=== PATIENT | male | born 1960 | race Caucasian/White ===

== ENCOUNTER 2019-12-03 10:46 | Outpatient (CLI) | payer BC ==
--- NOTE | 2019-12-03 11:13 | RAD ---
EXAM: 2 views of the right hip HISTORY: Right hip pain for 3 months COMPARISON: None FINDINGS: 2 views of the right hip shows no evidence of acute fracture or dislocation. Moderate degen erative changes are seen. No soft tissue swelling is present. IMPRESSION: Moderate right hip osteoarthritis without evidence of acute osseous abnormality.
--- NOTE | 2019-12-03 11:14 | RAD ---
EXAM: 3 views of the left foot HISTORY: Foot pain for 2 months COMPARISON: None FINDINGS: 3 views of the left foot shows no evidence of acute fracture or dislocation. Mild dorsal so ft tissue swelling is seen. Mild degenerative changes are present in the great toe metatarsophalangeal joint and in the midfoot. IMPRESSION: No evidence of acute osseous abnormality.
== END 2019-12-03 10:47 | disposition home or self-care (01) ==
LOC: BICRAD 10:46
PROVIDERS: ATTEND Physician Assistant
DX: M79.672 Pain in left foot (principal); M25.551 Pain in right hip; M16.11 Unilateral primary osteoarthritis, right hip
CPT/HCPCS: 36415; 80053; 80061; 83036

== ENCOUNTER 2021-03-25 10:36 | Outpatient (CLI) | payer BC | END 2021-03-25 10:37 | disposition home or self-care (01) | LOC: BICRAD 10:36 | PROVIDERS: ATTEND Physician Assistant | DX: M25.552 Pain in left hip (principal); Z96.642 Presence of left artificial hip joint ==

== ENCOUNTER 2021-07-19 09:46 | Outpatient (CLI) | payer BC | END 2021-07-19 09:47 | disposition home or self-care (01) | LOC: BICRAD 09:46 | PROVIDERS: ATTEND Physician Assistant | DX: M25.551 Pain in right hip (principal) | CPT/HCPCS: 36415; 80053; 80061; 82043; 83036 ==

== ENCOUNTER 2023-04-24 08:55 | Outpatient (CLI) | payer BC | END 2023-04-24 08:56 | disposition home or self-care (01) | LOC: BICRAD 08:55 | PROVIDERS: ATTEND Physician Assistant | DX: M25.531 Pain in right wrist (principal); M19.031 Primary osteoarthritis, right wrist; M18.11 Unilateral primary osteoarthritis of first carpometacarpal joint, right hand ==

== ENCOUNTER 2024-02-13 07:47 | Outpatient (CLI) | payer BC ==
[2024-02-13 10:27] LABS: #Basophils 0.07 10x3/uL (0.0-0.2); %Basophils 0.9 % (0.0-1.0); %Eosinophils 2.4 % (0.0-10.0); %Lymphocytes 22.2 % (21.0-51.0); %Monocytes 6.9 % (0.0-10.0); %Neutrophils 67.1 % (42.0-75.0); Hematocrit 45.2 % (42.0-52.0); Hemoglobin 14.8 g/dL (14.0-18.0); Mean Corpuscular HGB CONC 32.7 g/dL (32.0-36.0); Mean Corpuscular Hemoglobin 27.3 pg (27.0-31.0); Mean Corpuscular Volume 83.4 fL (78.0-98.0); Mean Platelet Volume 9.7 fL (7.4-10.4); Platelet Count 238 10x3/uL (130-400); RBC Distribution Width 13.3 % (11.5-14.5); Red Blood Cell (RBC) Count 5.42 mill/uL (4.70-6.10)
[2024-02-13 10:39] LABS: Anion Gap 14 mmol/L (10-20); BUN (Urea Nitrogen) 35 mg/dL (8.4-25.7); Calc. Creatinine Clearance 0 mL/min (70-130); Calcium 9.2 mg/dL (7.8-10.44); Carbon Dioxide 20 mmol/L (23-31); Chloride 107 mmol/L (98-107); Estimated GFR 85; Glucose 122 mg/dL (80-115); Sodium 137 mmol/L (136-145)
== END 2024-02-13 07:48 | disposition home or self-care (01) ==
LOC: LABBT 07:47
PROVIDERS: ATTEND Orthopaedic Surgery
DX: Z01.818 Encounter for other preprocedural examination (principal); M16.11 Unilateral primary osteoarthritis, right hip
CPT/HCPCS: 80048; 85025; 85610; 87081; 93005; 93010

== ENCOUNTER 2024-02-20 05:35 | Observation (INO) | payer BC ==
[2024-02-13 08:32] VITALS: BMI 40.9
[2024-02-20] MEDS ORDERED: Sodium Chloride 0.9% 100 ML ONE ×2 (05:57→09:53)
[2024-02-20] MEDS ORDERED: Tranexamic Acid 1,000 MG/10 ML VIAL ONE (05:57)
[2024-02-20] MEDS ORDERED: Propofol 1,000 MG/100 ML VIAL IV ONE (06:14)
[2024-02-20] MEDS ORDERED: Etomidate 40 MG (20 mL) VIAL ONE (06:15)
[2024-02-20] MEDS ORDERED: Phenylephrine 40 MG/NS 250 ML 250 ML ONE (06:15)
[2024-02-20] MEDS ORDERED: Vancomycin (BATCH) 2 GM in Premix 1 BAG IVPB SCH (06:15)
[2024-02-20] MEDS ORDERED: Rocuronium Bromide 10 MG/ML (10ML VIAL) ONE ×2 (06:26→08:39)
[2024-02-20] MEDS ORDERED: fentaNYL PF 100 MCG/2 ML SYRINGE ONE ×2 (06:26→09:28)
[2024-02-20] MEDS ORDERED: PROPOFOL 20 ML ONE (06:26)
[2024-02-20] MEDS ORDERED: Ondansetron PF 4 MG/2 ML Vial ONE (06:26)
[2024-02-20] MEDS ORDERED: Lidocaine 2% PF 5 ML VIAL ONE (06:26)
[2024-02-20] MEDS ORDERED: Midazolam HCl 2 mg/2 ml Vial ONE (06:26)
[2024-02-20] MEDS ORDERED: Dexamethasone 4 mg/ml Vial ONE (06:26)
[2024-02-20] MEDS ORDERED: PROPOFOL 40 ML ONE (06:37)
[2024-02-20] MEDS ORDERED: Dexmedetomidine 200 MCG/2 ML VIAL ONE (06:46)
[2024-02-20] MEDS ORDERED: CEFAZOLIN 2 GM VIAL ONE (06:49)
[2024-02-20] MEDS ORDERED: Lidocaine 1.5% w/Epi 1:200K 30 ML VIAL (Epid Use) ONE (07:15)
[2024-02-20] MEDS ORDERED: Bupivacaine 0.25% HCL 30 ML VIAL ONE (07:20)
[2024-02-20] MEDS ORDERED: ePHEDrine Sulfate 50 MG/10 ML VIAL ONE (07:38)
[2024-02-20] MEDS ORDERED: Naloxone HCl 0.4 mg/ml Vial IV PRN (07:45)
[2024-02-20] MEDS ORDERED: HYDROcodone/Acetaminophen 5/325 mg Tablet PO PRN (07:45)
[2024-02-20] MEDS ORDERED: Promethazine HCl 25 MG/ML VIAL IM PRN ×2 (07:45→10:16)
[2024-02-20] MEDS ORDERED: Moisturizing Cream (Eucerin) 113 GM JAR TOP PRN (07:45)
[2024-02-20] MEDS ORDERED: diphenhydrAMINE 50 MG/ML VIAL IVP PRN (07:45)
[2024-02-20] MEDS ORDERED: traMADol HCl 50 MG TAB PO PRN ×2 (07:45)
[2024-02-20] MEDS ORDERED: Bupivacaine 0.25% 10 ML VIAL EPIDURAL PRN (07:45)
[2024-02-20] MEDS ORDERED: Promethazine HCl 25 MG SUPP PR PRN (07:45)
[2024-02-20] MEDS ORDERED: diphenhydrAMINE 25 MG CAP PO PRN ×2 (07:45→10:16)
[2024-02-20] MEDS ORDERED: Naloxone HCl 0.4 mg/ml Vial IVP PRN (07:45)
[2024-02-20] MEDS ORDERED: diphenhydrAMINE 50 MG/ML VIAL IM PRN (07:45)
[2024-02-20] MEDS ORDERED: SUGAMMADEX SODIUM 200 MG/2 ML VIAL ONE ×2 (08:43→08:50)
[2024-02-20] MEDS ORDERED: CEFAZOLIN 1 GM VIAL ONE (09:53)
[2024-02-20] MEDS ORDERED: Zolpidem Tartrate 5 MG TAB PO PRN (10:16)
[2024-02-20] MEDS ORDERED: Acetaminophen 325 MG TAB PO PRN (10:16)
[2024-02-20] MEDS ORDERED: Cyclobenzaprine 10 MG TAB PO PRN (10:16)
[2024-02-20] MEDS ORDERED: Ondansetron PF 4 MG/2 ML Vial IVP PRN (10:16)
[2024-02-20] MEDS ORDERED: Pregabalin 50 MG CAP PO PRN (10:43)
[2024-02-20] MEDS: Senokot S 8.6-50 MG TAB PO SCH ×2 (13:51→21:10)
[2024-02-20] MEDS: Multivitamin W/ Minerals 1 TAB PO SCH (13:51)
[2024-02-20] MEDS: Aspirin 81 mg Enteric Coated Tablet PO SCH ×2 (13:51→21:10)
[2024-02-20] MEDS: Ketorolac Tromethamine 30 MG (1 mL) VIAL IVP SCH (13:51)
[2024-02-20] MEDS: Ferrous Gluconate 324 MG TAB PO SCH ×2 (13:51→21:10)
[2024-02-20] MEDS: Sodium Chloride 0.9% 1,000 ML IV SCH (13:53)
[2024-02-20] MEDS: Icosapent Ethyl 1 GM CAPSULE PO SCH (14:21)
[2024-02-20] MEDS ORDERED: Dextrose 5% in Water 1,000 ML IV PRN (18:06)
[2024-02-20] MEDS ORDERED: Glucagon 1 MG/ML KIT IM PRN (18:06)
[2024-02-20] MEDS ORDERED: Dextrose 50% Abboject 50 ML SYRINGE SLOW IVP PRN (18:06)
[2024-02-20] MEDS ORDERED: Insulin Lispro 100 UNIT/ML 10 ML VIAL SC PRN (18:06)
[2024-02-20] MEDS: ADMIXTURE FEE IVPB SCH (19:29)
[2024-02-20] MEDS: CEFAZOLIN IVPB SCH (19:29)
[2024-02-20] MEDS: SODIUM CHLORIDE IVPB SCH (19:29)
[2024-02-20] MEDS: HUMULIN R U SC SCH (21:11)
[2024-02-20 21:13] VITALS: TEMP 97.7
[2024-02-20] MEDS: Ondansetron PF 4 MG/2 ML Vial IVP PRN (23:30)
[2024-02-21] MEDS: FENTANYL 500 MCG/10 ML VIAL 500 MCG, Bupivacaine 0.75% 10 ML in Sodium Chloride 0.9% 80 ML EPIDURAL SCH (02:20)
[2024-02-21] MEDS: Levothyroxine Sodium 112 MCG TAB PO SCH (06:33)
[2024-02-21] MEDS: Cholecalciferol 1,000 UNITS (25 MCG) TAB PO SCH (07:29)
[2024-02-21] MEDS: Empagliflozin 25 MG TAB PO SCH (07:29)
[2024-02-21] MEDS: Furosemide 20 MG TAB PO SCH (07:30)
[2024-02-21] MEDS: CO Q-10 CAPSULE 100 MG PO SCH (07:30)
[2024-02-21] MEDS: Multivitamin W/ Minerals 1 TAB PO SCH (07:30)
[2024-02-21] MEDS: Spironolactone 25 MG TAB PO SCH (07:30)
[2024-02-21] MEDS: Losartan 25 MG TAB PO SCH (07:30)
[2024-02-21 08:08] LABS: Hematocrit 37.7 % (42.0-52.0); Hemoglobin 12.2 g/dL (14.0-18.0); Mean Corpuscular HGB CONC 32.4 g/dL (32.0-36.0); Mean Corpuscular Hemoglobin 27.5 pg (27.0-31.0); Mean Corpuscular Volume 84.9 fL (78.0-98.0); Mean Platelet Volume 9.7 fL (7.4-10.4); Platelet Count 202 10x3/uL (130-400); RBC Distribution Width 13.5 % (11.5-14.5); Red Blood Cell (RBC) Count 4.44 mill/uL (4.70-6.10)
[2024-02-21] MEDS ORDERED: Insulin Lispro 100 UNIT/ML 10 ML VIAL SC PRN (08:34)
[2024-02-21 09:18] VITALS: BP 125/63
[2024-02-21] MEDS: HYDROcodone/Acetaminophen 5/325 mg Tablet PO PRN (11:40)
[2024-02-21] MEDS ORDERED: Rosuvastatin 20 MG TAB PO SCH (21:00)
== END 2024-02-21 15:26 | disposition home or self-care (01) ==
LOC: SDC 05:35 → SURG A 11:58
PROVIDERS: ADMIT Orthopaedic Surgery; ATTEND Orthopaedic Surgery
PROC: 0SR90JZ Replacement of Right Hip Joint with Synthetic Substitute, Open Approach (ICD-10-PCS; principal; 2024-02-20)
PROC: 3E0T3BZ Introduction of Anesthetic Agent into Peripheral Nerves and Plexi, Percutaneous Approach (ICD-10-PCS; 2024-02-20)
DX: M16.11 Unilateral primary osteoarthritis, right hip (principal); M10.9 Gout, unspecified; I10 Essential (primary) hypertension; I25.10 Atherosclerotic heart disease of native coronary artery without angina pectoris; E11.40 Type 2 diabetes mellitus with diabetic neuropathy, unspecified; E78.5 Hyperlipidemia, unspecified; E03.9 Hypothyroidism, unspecified; G47.33 Obstructive sleep apnea (adult) (pediatric); Z95.5 Presence of coronary angioplasty implant and graft; Z96.642 Presence of left artificial hip joint; Z85.828 Personal history of other malignant neoplasm of skin; Z88.2 Allergy status to sulfonamides; Z88.8 Allergy status to other drugs, medicaments and biological substances; Z79.82 Long term (current) use of aspirin
CPT/HCPCS: 36415; 36416; 72170; 85027; C1713; C1776; J0665; J0690; J1100; J1885; J2250; J2405; J2704; J3010; J3370; J3490